=== PATIENT | female | born 1985 | race Caucasian/White ===

== ENCOUNTER 2023-04-18 08:36 | Outpatient (CLI) | payer MEDICAID, SELFPAY ==
--- NOTE | 2023-04-18 08:45 | CRLHL7_ITS ---
For Patients: As a result of the Cures Act, medical imaging exams and procedure reports are released immediately into your electronic medical record. You may view this report before your referring provider. If you have questions, please contact your health care provider. BILATERAL DIAGNOSTIC MAMMOGRAM WITH COMPUTER-AIDED DETECTION AND TOMOSYNTHESIS RIGHT ULTRASOUND CLINICAL HISTORY: RIGHT breast lump. COMPARISON: 11/17/2020 TECHNIQUE: Digital BILATERAL mammogram in 4 projections. Real-time ultrasound imaging of RIGHT breast with imaging documentation. BREAST COMPOSITION: The breasts are extremely dense, which lowers the sensitivity of mammography. FINDINGS: BILATERAL mammogram images demonstrate intact BILATERAL implants. Circumscribed nodular density within the medial RIGHT breast. No architectural distortion. LEFT breast mammogram unremarkable. No suspicious calcifications or adenopathy. Targeted RIGHT breast ultrasound 3 o`clock 3 cm from the nipple performed. In this location, there is a circumscribed slightly hypoechoic solid nodule with internal reticular echoes compatible with a benign fibroadenoma. No abnormal vascularity. This measures 2.2 x 0.8 x 2.4 cm. IMPRESSION: Benign fibroadenoma RIGHT breast 3 o`clock 3 cm from the nipple measuring 2.4 cm. RECOMMENDATIONS: Clinical follow-up. Age appropriate screening mammography. Patient desires surgical excision. BI-RADS Category 2: Benign Results and recommendations discussed with the patient. A lay language report of this examination will be provided to the patient. Dictated by Juan Luis Shipley MD @ 04/18/2023 10:11:48 AM/CRL:[email or web address] PT/Dictated by: Juan Luis Shipley MD @ 04/18/2023 10:11:00 AM (Electronically Signed)
--- NOTE | 2023-04-18 09:15 | CRLHL7_ITS ---
For Patients: As a result of the Century Cures Act, medical imaging exams and procedure reports are released immediately into your electronic medical record. You may view this report before your referring provider. If you have questions, please contact your health care provider. PLEASE SEE BILATERAL DIAGNOSTIC MAMMOGRAM OF SAME DAY. [email or web address] PT/Dictated by: Juan Luis Shipley MD @ 04/18/2023 10:11:00 AM (Electronically Signed)
== END 2023-04-18 08:37 | disposition home or self-care (01) ==
PROVIDERS: PCP Family Medicine; Visit Provider Physician Assistant
DX: N63.10 Unspecified lump in the right breast, unspecified quadrant (principal); D24.1 Benign neoplasm of right breast
CPT/HCPCS: 76642; 77066; 77067; G0279